=== PATIENT | male | born 1960 | race Two or more races ===

== ENCOUNTER 2025-08-03 10:06 | Outpatient (CLI) | payer OTHER ==
[~2025-08-03 10:06] MED LIST: BACLOFEN20 MG PO; CATAFLAM50 MG PO; CYCLOBENZAPRINE10 MG PO; DICLOFENAC POTA50 MG PO; IBU800 MG PO; NABUMETONE750 MG PO; NEURONTIN300 MG PO; NORFLEX100MG PO; TRAMADOL HCL50 MG PO
== END 2025-08-03 10:27 | disposition home or self-care (01) ==
LOC: SONOGRAMA 10:06
PROVIDERS: ATTEND Physical Medicine & Rehabilitation
DX: M54.2 Cervicalgia (principal); M75.82 Other shoulder lesions, left shoulder